=== PATIENT | male | born 1950 | race Caucasian/White ===

== ENCOUNTER → 2020-02-17 | Outpatient (CLI) | payer MEDICARE ==
[2020-02-17 09:02] VITALS: BP 168/99; PULSE 79; RESP 18; TEMP 98
--- NOTE | 2020-02-17 09:49 | P.PAINCN ---
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, he doesn't remember that any significant event that caused the pain, he denies any change in the bowel movement or urination, he denies any fever or night sweats, he tried epidural steroid injections and right sacroiliac joint steroid injection with minimal benefit, he tried physical therapy without any significant improvement in his pain, the pain is constant and increases with any activity and only localized in the low back area on the right side, with radiation to the right buttock, he continued to use Flexeril 10 mg 3 times a day and Mobic 15 mg daily and Percocet 7.5/325 twice a day, is getting prescription refills from his primary care he denies any side effect of the medication Past Medical History Past Medical History: Diabetes Mellitus, GERD/Reflux, Hypertension, Sleep Apnea/CPAP/BIPAP Additional Past Medical History / Comment(s): arthiritis; heart murmur History of Any Multi-Drug Resistant Organisms: None Reported Past Surgical History: Back Surgery, Heart Catheterization, Orthopedic Surgery Additional Past Surgical History / Comment(s): hernia surgeries; achilies repair Past Anesthesia/Blood Transfusion Reactions: No Reported Reaction Past Psychological History: Anxiety Smoking Status: Never smoker Past Alcohol Use History: None Reported Past Drug Use History: None Reported Medications and Allergies Home Medications Medication Instructions Recorded Confirmed Type Cyclobenzaprine [Flexeril] 10 mg PO TID PRN 02/17/20 02/17/20 History Dulaglutide [Trulicity] 1.5 mg SQ WEEKLY 02/17/20 02/17/20 History Empagliflozin [Jardiance] 25 mg PO DAILY 02/17/20 02/17/20 History FLUoxetine HCL [PROzac] 20 mg PO DAILY 02/17/20 02/17/20 History Meloxicam 15 mg PO DAILY 02/17/20 02/17/20 History Metoprolol Succinate (ER) [Toprol 200 mg PO DAILY 02/17/20 02/17/20 History Xl] Omeprazole 20 mg PO BID 02/17/20 02/17/20 History hydroCHLOROthiazide [Hydrodiuril] 50 mg PO DAILY 02/17/20 02/17/20 History metFORMIN HCL ER [Glucophage Xr] 500 mg PO BID 02/17/20 02/17/20 History oxyCODONE-APAP 7.5-325MG [Percocet 1 tab PO TID 02/17/20 02/17/20 History 7.5-325 mg] Allergies Allergy/AdvReac Type Severity Reaction Status Date / Time naproxen [From Naprosyn] AdvReac blood in Verified 02/17/20 08:29 stool Physical Exam Vitals: Vital Signs Temp Pulse Resp BP Pulse Ox 02/17/20 08:25 98.0 F 79 18 168/99 96 Physical Examinations : -Constitutiona : Cooperative , not in acute distress . -HEENT : nech : supple , no Lymphadenopathy , normal thyroid size . : eyes : no ptosis , no icterus, no photophobia . - neurologic : Cranial nerve II to XII intact , no focal neurological deffecit . -psychatric : alert , oriented X 3 , appropriate affect , intact judgment and insight . -Lymphatic : no Lymphadenopathy . - musculoskeltal : Lumber spine moter stegnth lower extremities ,thigh and legs 5/5 Right side , 5/5 Left side deep tendon reflexes : normal Knee Jerk , normal ankle Jerk lumber facet Loading Test =positive Right , negative Left Range of motion of the lumbar spine Flexion 60 degrees , extension 30 degrees strait leg raising test = positive at 60 degree on the right side and negative on the left side Fabere test= positive Right , and negative LT . Sever tenderness over the Sacroiliac joint on the Right , and negative on Left sides Gaenslen test= positive right ,and negative left . Seated flexion test= positive right ,and negative Left . Results Comments: MRI of the lumbar spine multilevel lumbar bulging disc disease at L2-3 and L3 4 L4 5 and L5-S1 and multilevel lumbar facet arthropathy Assessment and Plan Plan: Assessment and plan=1-lumbar spondylosis with lumbar facet arthropathy without myelopathy. 2-lumbar degenerative disc disease. 3-right sacroiliitis. Patient had lumbar epidural steroid injection and right sacroiliac joint steroid injection done at different institutions without any benefit He could benefit from a right side diagnostic medial branch block at L2, L3, L4, L5 To target the facet joint at L3 4 , L4 5, L5-S1 (right) Procedure risk and benefits and alternatives discussed with the patient and he wanted to think about it Patient will call our clinic to schedule the procedure if he decides to proceed Time with Patient: Greater than 30 PQRS Measure Charge Sheet Measure #130: Documentation of Current Meds in Medical Chart: Patient's medications documented in chart Measure #226: Tobacco Use: Screen & Cessation Intervention: Pt not a tobacco user Measure #111: Pneumonia Vaccination: Pneumococcal vaccine NOT administered or previously given Measure #47: Advance Care Plan: Advance care planning discussed & documented, pt chose/unable to give Measure #412: Opioid Treatment Agreement: No documentation of signed opioid treatment agreement Measure #408: Opioid Therapy Follow-up Evaluation: Patient had NO f/u eval minimum every 3 months during opioid therapy Measure #317: Preventitive Care & Scrn High Bld Press & F/U: Pre-hypertensive or hypertensive BP documented, pt will f/u with PCP Measure #128: Body Mass Index (BMI) Screening & Follow-up: BMI documented ABOVE normal parameters - f/u documented Measure #131: Pain Assessment & Follow-up: Pain positive & plan documented, Follow-up scheduled Measure #431: Unhealthy Alcohol Use Preventative Care & Scrn: Patient not identified as an unhealthy alcohol user PQRS Narrative: Blood Pressure 168/99 Scale Used Numeric (1 - 10) Hx Alcohol Use (MH) No Home Medications: Ambulatory Orders Cyclobenzaprine [Flexeril] 10 mg PO TID PRN 02/17/20 Dulaglutide [Trulicity] 1.5 mg SQ WEEKLY 02/17/20 Empagliflozin [Jardiance] 25 mg PO DAILY 02/17/20 FLUoxetine HCL [PROzac] 20 mg PO DAILY 02/17/20 Meloxicam 15 mg PO DAILY 02/17/20 Metoprolol Succinate (ER) [Toprol Xl] 200 mg PO DAILY 02/17/20 Omeprazole 20 mg PO BID 02/17/20 hydroCHLOROthiazide [Hydrodiuril] 50 mg PO DAILY 02/17/20 metFORMIN HCL ER [Glucophage Xr] 500 mg PO BID 02/17/20 oxyCODONE-APAP 7.5-325MG [Percocet 7.5-325 mg] 1 tab PO TID 02/17/20
== END | disposition home or self-care (01) ==
LOC: PNWHC3 08:18
PROVIDERS: ATTEND Specialist
DX: M47.816 Spondylosis without myelopathy or radiculopathy, lumbar region (principal); M51.36 Other intervertebral disc degeneration, lumbar region; M46.1 Sacroiliitis, not elsewhere classified; Z79.891 Long term (current) use of opiate analgesic; Z79.899 Other long term (current) drug therapy; Z79.84 Long term (current) use of oral hypoglycemic drugs
CPT/HCPCS: 99201

== ENCOUNTER → 2020-07-27 | Outpatient (CLI) | payer MEDICARE, OTHER ==
--- NOTE | 2020-07-27 09:42 | US ---
EXAMINATION TYPE: US kidneys/renal and bladder DATE OF EXAM: 07/27/2020 COMPARISON: NONE CLINICAL HISTORY: 69-year-old male N18.32 chronic kidney disease stage 3b. TECHNIQUE: Multiple sonographic images of the kidneys and bladder are obtained. FINDINGS: EXAM MEASUREMENTS: Right Kidney: 10.3 x 4.8 x 4.9 cm Left Kidney: 10.9 x 4.3 x 5.7 cm Right Kidney: No hydronephrosis. Left Kidney: No hydronephrosis. Bladder: No gross abnormality Incidental echogenic appearance to the liver. IMPRESSION: 1. No hydronephrosis. 2. Incidental echogenic appearance to the liver. Correlate for underlying hepatic steatosis.
== END | disposition home or self-care (01) ==
LOC: RADUSWWP 08:52
PROVIDERS: ATTEND Family Medicine
DX: N18.32 Chronic kidney disease, stage 3b (principal)
CPT/HCPCS: 76770

== ENCOUNTER → 2022-07-18 | Outpatient (CLI) | payer MEDICARE, OTHER ==
--- NOTE | 2022-07-18 12:08 | XR ---
EXAMINATION TYPE: XR chest 2V DATE OF EXAM: 07/18/2022 COMPARISON: NONE TECHNIQUE: PA and lateral views submitted. HISTORY: Cough FINDINGS: The lungs are clear and there is no pneumothorax, pleural effusion, or focal pneumonia. Heart size normal and no overt failure. Osseous structures demonstrate hypertrophic and degenerative changes of the spine. Hyperinflation suggests COPD. IMPRESSION: 1. No acute process.
== END | disposition home or self-care (01) ==
LOC: RADXRYALE 11:45
PROVIDERS: ATTEND Physician Assistant Medical
DX: R05.9 Cough, unspecified (principal); R06.2 Wheezing
CPT/HCPCS: 71046

== ENCOUNTER → 2022-07-25 | Outpatient (CLI) | payer MEDICARE, OTHER ==
--- NOTE | 2022-07-25 17:29 | CT ---
EXAMINATION TYPE: CT chest w con CT DLP: 566.70 mGycm, Automated exposure control for dose reduction was used. DATE OF EXAM: 07/25/2022 4:54 PM COMPARISON: Chest radiograph 07/18/2022 CLINICAL INDICATION:Male, 71 years old with history of R06.02 R05.3 Z77.111 J44.9; PHH, cough and jacquie g nodule. TECHNIQUE: Multiple axial images were obtained through the chest following the administration of 70 c c of Isovue 300. FINDINGS: LUNGS/ PLEURA: Dependent bibasilar persistent atelectasis. No pleural effusion, pneumothorax, or foca l consolidation. Calcified punctate granuloma within the right lung base. AIRWAY: Patent and unremarkable.. HEART: Size within normal limits. No pericardial effusion. MEDIASTINUM: No gross evidence of adenopathy. 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 VASCULATURE: No aortic aneurysm. MUSCULOSKELETAL: No acute osseous abnormalities . Multilevel degenerative changes of the visualized s pine. SOFT TISSUES/LYMPH NODES: Unremarkable. LOWER NECK: No significant findings. UPPER ABDOMEN: Small hiatal hernia. IMPRESSION: No acute thoracic process or clinically significant pulmonary nodules.
== END | disposition home or self-care (01) ==
LOC: RADCTMAIN 15:31
PROVIDERS: ATTEND Family Medicine
DX: J44.9 Chronic obstructive pulmonary disease, unspecified (principal); Z77.111 Contact with and (suspected) exposure to water pollution
CPT/HCPCS: 82565; 84520; 71260; 36415; Q9967

== ENCOUNTER → 2023-02-01 | Outpatient (CLI) | payer MEDICARE, OTHER ==
--- NOTE | 2023-02-02 16:22 | MR ---
EXAMINATION TYPE: MR lumbar spine wo con DATE OF EXAM: 02/01/2023 COMPARISON: None HISTORY: Lower back pain, radiates into buttocks. CONTRAST: 0 mL intravenous Gadavist. TECHNIQUE: Multiplanar, multisequence images of the lumbar spine were acquired. FINDINGS: Cord terminates at the L1 level. L5-S1: There is narrowing of disc height at this level. Minimal residual disc bulge is present with a nterior thecal sac contact. Facet hypertrophy is present with mild right posterior lateral thecal sac compression. No AP spinal canal stenosis is present. Neural foramen are patent. L4-L5: Broad-based disc bulge is moderate anterior thecal sac compression. Facet hypertrophy of ligam entum flavum laxity has significant lateral canal narrowing. This is also contributing to spinal zakia l stenosis this level. Mild right and moderate left foraminal narrowing is present. L3-L4: Broad-based disc bulge is present greater to the left paracentral region. This has moderate an terior thecal sac compression. Facet hypertrophy and significant ligamentum flavum laxity is present contributing to severe spinal canal stenosis, more so on the left. Moderate to severe left foraminal stenosis is present. L2-L3: There is a grade 1 retrolisthesis. Disc uncovering has mild anterior thecal sac compression. A P spinal canal stenosis is not present. Mild facet hypertrophy is present. Moderate to severe right a nd moderate left foraminal narrowing is present. L1-L2: Mild disc bulge is anterior thecal sac contact. No spinal canal stenosis is present. Neural fo ramen are patent. T12-L1: No significant disc bulge or disc herniation. No spinal canal stenosis. No foraminal stenos is. IMPRESSION: 1. Spinal canal stenosis secondary to ligamentum flavum laxity and mild disc bulging at L4-5. 2. Severe spinal canal stenosis secondary to disc bulging L3-4 greater into the left paracentral la nena on. Significant ligamentum flavum laxity has posterior lateral thecal sac compression on the left. 3. Grade 1 retrolisthesis of L2 posterior and L3. AP spinal canal stenosis is not evident
== END | disposition home or self-care (01) ==
LOC: RADMRIMAIN 10:49
PROVIDERS: ATTEND Family Medicine
DX: M51.16 Intervertebral disc disorders with radiculopathy, lumbar region (principal); M48.061 Spinal stenosis, lumbar region without neurogenic claudication; M43.16 Spondylolisthesis, lumbar region; R53.1 Weakness
CPT/HCPCS: 72148

== ENCOUNTER → 2023-03-13 | Outpatient (CLI) | payer MEDICARE, OTHER ==
[2023-03-13 11:38] VITALS: BP 138/88; PULSE 77; RESP 15; TEMP 98.6
--- NOTE | 2023-03-13 12:49 | P.PAINPG ---
PQRS Measure Charge Sheet Comment: HISTORY OF PRESENT ILLNESS: A 72 yr old male w at side as a referral from Dr Vital presents today w severe and chronic LBP x 3 yrs secondary to spinal stenosis, DDD, spondylosis and facet arthropathy without myelopathy for evaluation. Pt states pain level is provoked at 8 /10 in intensity, constant, localized in the lower lumbar spine, predominantly axial, achy in character w occasional shooting pain towards the L & R of midline. Pain is provoked by walking/ standing for periods of 15 min or more. Pain is alleviated by chiropractic treatments semi weekly x 5 wks which ended in Jan 2023, medications ([place] 10/325mg, Mobic, Baclfen), PT 5 yrs ago, heat, ice, repositioning and rest. Oswestry axial pain score at 28. PMH: OA, DM II, GERD, HTN, RADHA, Anxiety PSH: Cardiac Cath, Hernia Repair, Achilles Repair, Orthopedic Surgery SH: Negative x3 FH: Non contributory All: See list Meds: See list REVIEW OF ORGAN SYSTEMS: CONSTITUTIONAL: No fevers or chills. No recent weight loss. NEUROLOGICAL: + numbness and tingling along the distal extremities. No seizure disorders or headaches. MUSCULOSKELETAL: + pain PSYCHIATRIC: Denies current depression or suicidal thoughts. Physical Examinations : Constitutional : Cooperative , not in acute distress . Neurologic : Cranial nerve II to XII intact. No focal neurological deficits. Psychiatric : alert & oriented x 3. Matching mood & appropriate affect. Judgment & insight intact. Musculoskeletal : Cervical Spine Motor strength in the deltoid and biceps: Normal right side. Normal Left side Motor strength biceps and the wrist extensors: Normal right side . Normal left side Motor strength in the triceps muscle: Normal right side. Normal left side Deep tendon reflexes: Normal at the biceps. Normal at Brachioradialis. Normal at triceps Vertebral body tenderness to deep palpation over Cervical facet loading test: positive bilaterally Spurling test: positive bilaterally Neck distraction test: positive bilaterally Gio sign: positive bilaterally Lumbar spine Motor strength lower extremities ,thigh and legs 5/5 Right side , 5/5 Left side Deep tendon reflexes : Normal Knee Jerk. Normal Ankle Jerk Vertebral body tenderness over Atkins Test positive Lumbar facet Loading Test: positive Right / positive Left over L4-L5, L5-S1 Range of motion of the lumbar spine Flexion 30 degrees, extension 10 degrees Straight Leg Raise test: Left/ Right positive at degree Jose Daniel test: positive right / positive left. Severe tenderness over the Sacroiliac joint on the Right / Left sides Gaenslen test: positive bilaterally Seated flexion test: positive bilaterally. Sacral spine : Severe tenderness over the Sacroiliac joint: right side / left side Range of motion: Flexion of the lumbar spine <60 degrees Range of motion: Extension of the lumbar spine <20 degrees Gaenslen's Test positive Jose Daniel test: positive right side / left side Thigh Thrust Test Sacral Thrust Test Imaging: MRI noncontrast of the lumbar spine from 02/01/23 reviewed Assessment/ Plan : Lumbar spinal stenosis, lumbar DDD Recommendation of BL MBB L4-L5, L5-S1 #1. May need a series of injections, up until RFA, for optimal pain relief. Risks, benefits of procedure discussed and patient verbalized understanding. Admits to anti- coagulant use or medical history of diabetes. Protocol for discontinuation/ continuation of medications thierry procedure discussed. Minimal anesthesia provided, if clinically indicated, consisting of Versed and Fentanyl. All questions answered. I have spent greater than 30 minutes on patient care today. Dr Parsons was available by phone for the evaluation of this patient. The time was used to review the medical records including relevant urine studies and Prescription history (MAPs), review of the available imaging, evaluation and examination of the patient, coordination of care with the medical staff and if applicable referring physicians, as well as creation of the medical record PQRS Narrative: Hx Alcohol Use (MH) No Home Medications: Ambulatory Orders Cyclobenzaprine [Flexeril] 10 mg PO TID PRN 02/17/20 Dulaglutide [Trulicity] 1.5 mg SQ WEEKLY 02/17/20 Empagliflozin [Jardiance] 25 mg PO DAILY 02/17/20 FLUoxetine HCL [PROzac] 20 mg PO DAILY 02/17/20 Meloxicam 15 mg PO DAILY 02/17/20 Metoprolol Succinate (ER) [Toprol Xl] 200 mg PO DAILY 02/17/20 Omeprazole 20 mg PO BID 02/17/20 hydroCHLOROthiazide [Hydrodiuril] 50 mg PO DAILY 02/17/20 metFORMIN HCL ER [Glucophage Xr] 500 mg PO BID 02/17/20 oxyCODONE-APAP 7.5-325MG [Percocet 7.5-325 mg] 1 tab PO TID 02/17/20 Controlled Substance Measures - Controlled Substance Measures Is patient prescribed a controlled substance at discharge?: No
== END ==
LOC: PNWHC3 10:18
PROVIDERS: ATTEND Specialist
DX: M46.1 Sacroiliitis, not elsewhere classified (principal); M47.817 Spondylosis without myelopathy or radiculopathy, lumbosacral region; M51.37 Other intervertebral disc degeneration, lumbosacral region; M48.07 Spinal stenosis, lumbosacral region; Z88.6 Allergy status to analgesic agent
CPT/HCPCS: 99211

== ENCOUNTER → 2023-03-27 | Outpatient (CLI) | payer MEDICARE, OTHER ==
--- NOTE | 2023-03-27 12:52 | P.SLEEP ---
History of Present Illness DATE: 03/27/2023 CONSULTATION/NEW PATIENT EVALUATION HISTORY OF PRESENT ILLNESS/SLEEP-WAKE EVALUATION: 72-year-old gentleman had been evaluated in the sleep center for obstructive sleep apnea hypopnea syndrome. Patient has history of obstructive sleep apnea for 15 years. He continued to use his she lost CPAP equipment unit every night for the whole night. I checked CPAP unit. Motor live expectancy exceeded. Usage is 100%, 10.2 hours per night. Patient significantly increased weight since sleep study which was done in another institution 15 years ago. SLEEP SCHEDULE: Usually sleep schedule from 11 PM to 7 AM. FALLING ASLEEP: Patient does have problems with falling asleep. DURING SLEEP: Usually no significant snoring or episodes of stop breathing during the sleep while patient using CPAP. Patient continued to have multiple awakenings from CPAP up to 4 times with 4 episodes of nocturia. No history of hypnogogical hallucinations, sleep paralysis, or cataplexy. DURING THE DAY/WAKE STATE: In the morning patient wake up tired, has problems with memory, concentration, irritability.. [place] sleepiness scale is 5. Patient takes 2 naps at afternoon time. PAST MEDICAL HISTORY: Hypertension, diabetes mellitus, BPH, hyperlipidemia, arthritis, sinuses problems, acid reflux,. PAST SURGICAL HISTORY: Left ankle surgery, vasectomy. MEDICATIONS: Insulin, meloxicam 7.5 mg once a day, Flomax 0.4 mg once a day, omeprazole 20 mg once a day, Jardiance, loratidine 10 mg once a day, hydrochlorothiazide 50 mg once a day, metoprolol 100 mg once a day, hydrocodone 36492 milligrams once a day, baby aspirin. SOCIAL HISTORY: Negative for smoking or using alcohol. FAMILY HISTORY: Coronary artery disease. REVIEW OF SYSTEMS: Snoring, multiple awakenings from sleep, sleepiness during the day. No fevers. No double vision. No recent chest pain. No shortness of breath. No abdominal pain. No bleeding episodes. No blood in urine. No seizure episodes. PHYSICAL EXAMINATION: GENERAL: A pleasant patient without any distress. VITAL SIGNS: BP 125/70 , HR 48 , RR 12 , weight 271.2 pounds, height 6 fo ot 1.5 inches, body mass index 35.2 . HEENT: PERRLA, EOMI. Evaluation of oropharynx showed tongue protrudes midline, low position of soft palate Mallampati 4 NECK: Supple. No JVD. Thyroid is not palpable. [19-3/4inches in circumference. LUNGS: Clear to percussion and to auscultation. Good air exchange. No wheezing or rhonchi. HEART: S1, S2 regular. No murmurs, gallops or rubs. ABDOMEN: Soft and nontender. Bowel sounds are present. No organomegaly appreciated. EXTREMITIES: No clubbing or cyanosis. GUMMED TAPE PRESS OPERATOR: Awake, alert, and oriented x3. Cranial nerves 2 to 7 intact. There is no fasciculation or atrophy noted. No focal deficits observed. ASSESSMENT: 1. Obstructive sleep apnea hypopnea syndrome for more than 15 years. Patient continued to use CPAP equipment, but has multiple awakenings from sleep and sleepiness during the day. Extremely low position of soft palate Mallampati 4, extremely wide neck 19 and three-quarter inches in circumference. Obstructive sleep apnea-hypopnea syndrome. 2. Obesity BMI 35.2 3. Hypertension 4. Diabetes mellitus 5 BPH 6 . hyperlipidemia 7. Acid reflux 8. Arthritis 9 . status post left ankle surgery 10. status post was ectomy PLAN: 1. CPAP/BiPAP titration for respiratory abnormalities during sleep. 2. Patient will get new Pap equipment after titration 3. Preferable position during sleep on the side. 4. No driving if patient feels any sleepiness. Patient is aware of civil and criminal liability for unsafe driving. 5. Sleep hygiene with regular sleep time for at least 7.5-8 hours. 6. Watching and losing weight. Thank you very much for referring this patient for consultation. Sincerely, Segun Saunders MD, PhD, FAASM. Diplomat of [place] [employer], Sleep Medicine Board by [place] [employer] [place] [employer] Manager of [facility] [place] Past Medical History Past Medical History: Diabetes Mellitus, GERD/Reflux, Hypertension, Osteoarthritis (OA), Sleep Apnea/CPAP/BIPAP Additional Past Medical History / Comment(s): arthritis, heart murmur History of Any Multi-Drug Resistant Organisms: None Reported Past Surgical History: Back Surgery, Heart Catheterization, Orthopedic Surgery Additional Past Surgical History / Comment(s): hernia surgeries; achilies repair, pain procedures Past Anesthesia/Blood Transfusion Reactions: No Reported Reaction Smoking Status: Never smoker Medications and Allergies Home Medications Medication Instructions Recorded Confirmed Type Empagliflozin [Jardiance] 25 mg PO DAILY 02/17/20 03/24/23 History FLUoxetine HCL [PROzac] 20 mg PO DAILY 02/17/20 03/24/23 History Meloxicam 7.5 mg PO DAILY 02/17/20 03/24/23 History Metoprolol Succinate (ER) [Toprol 200 mg PO DAILY 02/17/20 03/24/23 History Xl] Omeprazole 20 mg PO DAILY 02/17/20 03/24/23 History hydroCHLOROthiazide [Hydrodiuril] 50 mg PO DAILY 02/17/20 03/24/23 History Aspirin 81 mg PO DAILY 03/24/23 03/24/23 History Baclofen [Lioresal] 10 mg PO TID 03/24/23 03/24/23 History [place]wellia 1 tab PO DAILY 03/24/23 History Cholecalciferol [Vitamin D3 (25 25 mcg PO DAILY 03/24/23 03/24/23 History Mcg = 1000 Iu)] Diclofenac Sodium Gel [Voltaren 1% 2 gm TOPICAL QID 03/24/23 03/24/23 History Gel] Glucosa Reddy 2Kcl/Chondroitin Reddy 1 each PO DAILY 03/24/23 03/24/23 History [Glucosamine-Chondroitin Cap] HYDROcodone/APAP 10-325MG [[place] 1 tab PO TID 03/24/23 03/24/23 History 10-325] INSULIN ASPART (NovoLOG) [NovoLOG 6 unit SQ AC-TID 03/24/23 03/24/23 History (formulary)] Insulin Glargine,Hum.rec.anlog 60 units SQ HS 03/24/23 03/24/23 History [Toujeo Solostar] Loratadine [Claritin] 10 mg PO DAILY 03/24/23 03/24/23 History Milk Thistle 150 mg PO DAILY 03/24/23 03/24/23 History Multivitamins, Thera [Multivitamin 1 tab PO DAILY 03/24/23 03/24/23 History (formulary)] Simvastatin [Zocor] 40 mg PO HS 03/24/23 03/24/23 History Tamsulosin HCl [Flomax] 0.4 mg PO HS 03/24/23 03/24/23 History Tirzepatide [Mounjaro] 5 mg SQ SA 03/24/23 03/24/23 History Ubidecarenone [Co Q-10] 100 mg PO DAILY 03/24/23 03/24/23 History Vitamin E (Dl,Tocopheryl Acet) 400 unit PO DAILY 03/24/23 03/24/23 History [Vitamin E (400 Iu = 180 mg)] Allergies Allergy/AdvReac Type Severity Reaction Status Date / Time naproxen [From Naprosyn] AdvReac blood in Verified 03/24/23 16:02 stool Sleep Note - Sleep Note Sleep Note: Temperature: Pulse Rate: Respiratory Rate: Blood Pressure: SpO2: Height: Weight: BMI: Neck Circumference:
== END ==
LOC: 3 N SLEEP 10:59
PROVIDERS: ATTEND Internal Medicine
DX: G47.33 Obstructive sleep apnea (adult) (pediatric) (principal); E66.9 Obesity, unspecified; I10 Essential (primary) hypertension; E11.9 Type 2 diabetes mellitus without complications; N40.0 Benign prostatic hyperplasia without lower urinary tract symptoms; E78.5 Hyperlipidemia, unspecified; K21.9 Gastro-esophageal reflux disease without esophagitis; M19.90 Unspecified osteoarthritis, unspecified site; Z98.890 Other specified postprocedural states; Z68.35 Body mass index [BMI] 35.0-35.9, adult; Z99.89 Dependence on other enabling machines and devices; Z88.8 Allergy status to other drugs, medicaments and biological substances; Z79.4 Long term (current) use of insulin; Z79.85 Long-term (current) use of injectable non-insulin antidiabetic drugs; Z79.899 Other long term (current) drug therapy; Z79.82 Long term (current) use of aspirin; Z79.84 Long term (current) use of oral hypoglycemic drugs
CPT/HCPCS: 99211

== ENCOUNTER 2023-03-28 11:45 | Day surgery (SDC) | payer MEDICARE, OTHER ==
[~2023-03-28 11:45] MED LIST: LACTATED RINGERS 1,000 ML IV SCH
[2023-03-28 12:50] VITALS: RESP 16; TEMP 97.7
[2023-03-28 12:57] LABS: Glucose,Whole Blood 138 mg/dL (70-110)
[2023-03-28] MEDS ORDERED: ROPIVACAINE 5MG/ML 20ML VIAL ONE (14:14)
[2023-03-28] MEDS ORDERED: MIDAZOLAM 2 MG/2 ML VIAL ONE (14:14)
[2023-03-28] MEDS ORDERED: IV FLUID CONTINUATION 1,000 ML IV ONE (14:39)
--- NOTE | 2023-03-28 14:39 | P.PCN ---
Description of Procedure: Preprocedure diagnosis. 1. 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 2. Lumbar degenerative disc disease. Postprocedure diagnosis. As above. Procedure done. Bilateral diagnostic block with local anesthetics at L3, L4, L5 medial branch with fluoroscopic guidance (fluoroscopy images are available in the radiology department) target to the facet joint bilateral L4 5 and L5-S1 levels. Anesthesia. moderate sedation with intravenous Versed 2 mg and fentanyl and local infiltration with local anesthetics. Blood loss. Minimal. Indication. The patient has low back pain secondary to lumbar facet joint arthropathy. Discussed the procedure and alternative and complications which includes infection, bleeding, nerve damage, aggravation of pain. Patient understands and all questions were answered. Patient iunderstands that if any pain relief occurs it will last for a few hours to a few days maximum. Procedure description. After getting consent patient was taken in the OR in prone position. Back prepped with chlorhexidine and draped in sterile fashion. After injecting 5 mL of plain 1% lidocaine subcutaneously, a 22-gauge spinal needle was introduced under tunnel vision of the fluoroscope at the junction of the superior articular process with right ala of the sacrum. With slight right oblique fluoroscope, after injecting 5 mL of plain 1% lidocaine subcutaneously, a 22-gauge spinal needle was introduced under tunnel vision of the fluoroscope at the junction of the superior articular process with right L5 transverse process, junction of the superior articular process with the right L4 transverse process. After needle position confirmation by AP and crosstable lateral view, after negative aspiration, half milliliters of 0.5% ropivacaine were injected at each point. In exactly same way, left sided injections were done at the following 3 points. Junction of the superior articular process with left ala of the sacrum, junction of the superior articular process with the left L5 transverse process, junction of the superior articular process with left L4 transverse process. Total 3 mL of 0.5% ropivacaine was injected. Spinal needles were taken out and bandages were applied. Disposition. Patient tolerated the procedure well. No complication. Discharged home in stable condition.
[2023-03-28 15:19] VITALS: BP 111/66; PULSE 67
--- NOTE | 2023-03-28 15:54 | FL ---
EXAMINATION TYPE: FL guided pain mgmt statistic DATE OF EXAM: 03/28/2023 HISTORY: Fluoroscopy time Total dose area product (DAP) in uGy*m?, mGy*cm? (or similar): 0.48020 IMPRESSION: 1. Fluoroscopy time.
== END 2023-03-28 15:14 | disposition home or self-care (01) ==
LOC: ORPAIN 11:45
PROVIDERS: ATTEND Pain Medicine Interventional Pain Medicine
DX: M51.36 Other intervertebral disc degeneration, lumbar region (principal); M47.816 Spondylosis without myelopathy or radiculopathy, lumbar region; E11.9 Type 2 diabetes mellitus without complications; Z88.6 Allergy status to analgesic agent; Z79.899 Other long term (current) drug therapy
CPT/HCPCS: 64493; 64494 ×2; J2250; J2795

== ENCOUNTER → 2023-04-27 | Outpatient (CLI) | payer MEDICARE, OTHER ==
[2023-04-27 10:59] VITALS: BP 156/92; PULSE 78; RESP 16; TEMP 98.3
--- NOTE | 2023-04-27 14:19 | P.PAINPG ---
PQRS Measure Charge Sheet Comment: HISTORY OF PRESENT ILLNESS: A 72 yr old male w at side presents today w severe and chronic LBP x 3 yrs secondary to spinal stenosis, DDD, spondylosis and facet arthropathy without myelopathy for evaluation s/p BL MBB L3-L5 #1. Pt states he experienced 50% pain relief s/p procedure. Pt states pain level is provoked at 4 /10 in intensity, constant, localized in the lower lumbar spine, predominantly axial, achy in character w occasional shooting pain towards the L & R of midline. Pain is provoked by walking/ standing for periods of 15 min or more. Pain is alleviated by chiropractic treatments semi weekly x 5 wks which ended in Jan 2023, medications, PT 5 yrs ago, heat, ice, repositioning and rest. Oswestry axial pain score at 28. Interventional procedures include BL MBB L3-L5 x1 Medications include Jackson 10/325mg, Baclofen, Mobic REVIEW OF ORGAN SYSTEMS: CONSTITUTIONAL: No fevers or chills. No recent weight loss. NEUROLOGICAL: + numbness and tingling along the distal extremities. No seizure disorders or headaches. MUSCULOSKELETAL: + pain PSYCHIATRIC: Denies current depression or suicidal thoughts. Physical Examinations : Constitutional : Cooperative , not in acute distress . Neurologic : Cranial nerve II to XII intact. No focal neurological deficits. Psychiatric : alert & oriented x 3. Matching mood & appropriate affect. Judgment & insight intact. Musculoskeletal : Cervical Spine Motor strength in the deltoid and biceps: Normal right side. Normal Left side Motor strength biceps and the wrist extensors: Normal right side . Normal left side Motor strength in the triceps muscle: Normal right side. Normal left side Deep tendon reflexes: Normal at the biceps. Normal at Brachioradialis. Normal at triceps Vertebral body tenderness to deep palpation over Cervical facet loading test: positive bilaterally Spurling test: positive bilaterally Neck distraction test: positive bilaterally Gio sign: positive bilaterally Lumbar spine Motor strength lower extremities ,thigh and legs 5/5 Right side , 5/5 Left side Deep tendon reflexes : Normal Knee Jerk. Normal Ankle Jerk Vertebral body tenderness over Atkins Test positive Lumbar facet Loading Test: positive Right / positive Left over L4-L5, L5-S1 Range of motion of the lumbar spine Flexion 30 degrees, extension 10 degrees Straight Leg Raise test: Left/ Right positive at degree Jose Daniel test: positive right / positive left. Severe tenderness over the Sacroiliac joint on the Right / Left sides Gaenslen test: positive bilaterally Seated flexion test: positive bilaterally. Sacral spine : Severe tenderness over the Sacroiliac joint: right side / left side Range of motion: Flexion of the lumbar spine <60 degrees Range of motion: Extension of the lumbar spine <20 degrees Gaenslen's Test positive Jose Daniel test: positive right side / left side Thigh Thrust Test Sacral Thrust Test Imaging: MRI noncontrast of the lumbar spine from 02/01/23 reviewed Assessment/ Plan : Lumbar spinal stenosis, lumbar DDD Recommendation of PT x 6 wks M51.36. Follow up w orthopedic surgery to explore additional treatment options. All questions answered. I have spent greater than 30 minutes on patient care today. Dr Parsons was available by phone for the evaluation of this patient. The time was used to review the medical records including relevant urine studies and Prescription history (MAPs), review of the available imaging, evaluation and examination of the patient, coordination of care with the medical staff and if applicable referring physicians, as well as creation of the medical record PQRS Narrative: Hx Alcohol Use (MH) No Home Medications: Ambulatory Orders Empagliflozin [Jardiance] 25 mg PO DAILY 02/17/20 FLUoxetine HCL [PROzac] 20 mg PO DAILY 02/17/20 Meloxicam 7.5 mg PO DAILY 02/17/20 Metoprolol Succinate (ER) [Toprol Xl] 200 mg PO DAILY 02/17/20 Omeprazole 20 mg PO DAILY 02/17/20 hydroCHLOROthiazide [Hydrodiuril] 50 mg PO DAILY 02/17/20 Aspirin 81 mg PO DAILY 03/24/23 Baclofen [Lioresal] 10 mg PO TID 03/24/23 Boswellia 1 tab PO DAILY 03/24/23 Cholecalciferol [Vitamin D3 (25 Mcg = 1000 Iu)] 25 mcg PO DAILY 03/24/23 Diclofenac Sodium Gel [Voltaren 1% Gel] 2 gm TOPICAL QID 03/24/23 Glucosa Reddy 2Kcl/Chondroitin Reddy [Glucosamine-Chondroitin Cap] 1 each PO DAILY 03/24/23 HYDROcodone/APAP 10-325MG [Jackson 10-325] 1 tab PO TID 03/24/23 INSULIN ASPART (NovoLOG) [NovoLOG (formulary)] 6 unit SQ AC-TID 03/24/23 Insulin Glargine,Hum.rec.anlog [Toujeo Solostar] 60 units SQ HS 03/24/23 Loratadine [Claritin] 10 mg PO DAILY 03/24/23 Milk Thistle 150 mg PO DAILY 03/24/23 Multivitamins, Thera [Multivitamin (formulary)] 1 tab PO DAILY 03/24/23 Simvastatin [Zocor] 40 mg PO HS 03/24/23 Tamsulosin HCl [Flomax] 0.4 mg PO HS 03/24/23 Tirzepatide [Mounjaro] 5 mg SQ SA 03/24/23 Ubidecarenone [Co Q-10] 100 mg PO DAILY 03/24/23 Vitamin E (Dl,Tocopheryl Acet) [Vitamin E (400 Iu = 180 mg)] 400 unit PO DAILY 03/24/23 Controlled Substance Measures - Controlled Substance Measures Is patient prescribed a controlled substance at discharge?: No
== END ==
LOC: PNWHC3 10:30
PROVIDERS: ATTEND Specialist
DX: M51.36 Other intervertebral disc degeneration, lumbar region (principal); M48.061 Spinal stenosis, lumbar region without neurogenic claudication; Z88.6 Allergy status to analgesic agent
CPT/HCPCS: 99211

== ENCOUNTER → 2024-06-12 | Outpatient (CLI) | payer MEDICARE, OTHER ==
--- NOTE | 2024-06-12 16:15 | NM ---
EXAMINATION TYPE: NM stress lexiscan cardiolite DATE OF EXAM: 06/12/2024 COMPARISON: NONE CLINICAL INDICATION: Male, 73 years old with history of R06.02 Shortness of breath, R42 Dizziness and giddiness; vertigo and hypertension. TECHNIQUE: After the intravenous administration of 9.7 mCi Tc 99m Sestamibi - Cardiolite resting SPE CT images acquired 45 minutes post injection. The patient received 0.4mg Lexiscan, 23.0 mCi Tc 99m Sestamibi - Stress images obtained [address] injection FINDINGS: Review of stress and rest SPECT images demonstrates large area of fixed perfusion defect involving es sentially the entire inferior wall. No distinct reversibility is identified. Gated analysis shows pos sible global hypokinesis with an estimated left ventricular ejection fraction of 41 %. TID it is jen sured normal at 0.91. IMPRESSION: 1. Large fixed perfusion defect involving the inferior wall. Correlate for history of any previous in farct. Alternatively, findings may be on the basis of prominent diaphragmatic attenuation artifact wh ich would limit the exam. Clinically correlate. Otherwise, no discrete reversibility is seen. 2. LVEF estimated low at 41%. [facility], , 06/12/2024 4:13 PM
--- NOTE | 2024-06-12 18:53 | CA ---
Transthoracic Echo Report Name: Parrish Dumont Age: 73 Gender: M : 1950 Exam Date: 06/12/2024 13:11 Exam Location: [facility] Ht (in): 74 Wt (lb): 215 Ordering Physician: Morteza Quezada DO Attending/Referring Phys: Jana Harkins PAC Tobacco Wrapping Machine Tender Melissa Canela RDCS Procedure CPT: Indications: R06.02 Shortness of breath R42 Dizziness and giddiness Cardiac Hx: Technical Quality: Fair Contrast 1: Total Dose (mL): Contrast 2: Total Dose (mL): MEASUREMENTS (Male / Female) Normal Values 2D ECHO LV Diastolic Diameter PLAX 5.1 cm 4.2 - 5.9 / 3.9 - 5.3 cm LV Systolic Diameter PLAX 4.1 cm IVS Diastolic Thickness 1.2 cm 0.6 - 1.0 / 0.6 - 0.9 cm LVPW Diastolic Thickness 1.2 cm 0.6 - 1.0 / 0.6 - 0.9 cm LV Relative Wall Thickness 0.5 RV Internal Dim ED PLAX 2.8 cm LVOT Diameter 2.1 cm LA Systolic Diameter LX 4.1 cm 3.0 - 4.0 / 2.7 - 3.8 cm LV Diastolic Volume MOD BP 131.3 cm??? 67 - 155 / 56 - 104 cm??? LV Systolic Volume MOD BP 71.7 cm??? 22 - 58 / 19 - 49 cm??? LV Ejection Fraction MOD BP 45.4 % >= 55 % LV Cardiac Index MOD BP 2125.1 cm???/min???m??? LV Diastolic Volume MOD 4C 110.1 cm??? LV Systolic Volume MOD 4C 65.5 cm??? LV Ejection Fraction MOD 4C 40.6 % LV Cardiac Index MOD 4C 1594.4 cm???/min???m??? LV Diastolic Length 4C 8.5 cm LV Systolic Length 4C 7.8 cm LV Diastolic Volume MOD 2C 138.8 cm??? LV Systolic Volume MOD 2C 80.6 cm??? LV Ejection Fraction MOD 2C 42.0 % LV Cardiac Index MOD 2C 2077.2 cm???/min???m??? LV Diastolic Length 2C 9.7 cm LV Systolic Length 2C 7.7 cm M-MODE Aortic Root Diameter MM 3.5 cm LA Systolic Diameter MM 3.0 cm LA Ao Ratio MM 0.9 AV Cusp Separation MM 1.3 cm DOPPLER AV Peak Velocity 225.0 cm/s AV Peak Gradient 20.2 mmHg AV Mean Velocity 148.9 cm/s AV Mean Gradient 10.3 mmHg AV Velocity Time Integral 49.5 cm AI Peak Velocity 313.6 cm/s AI Peak Gradient 39.3 mmHg AI Pressure Half Time 562.3 ms LVOT Peak Velocity 74.4 cm/s LVOT Peak Gradient 2.2 mmHg LVOT Velocity Time Integral 19.1 cm LVOT Stroke Volume 63.4 cm??? LVOT Stroke Volume Index 28.3 ml/m??? LVOT Cardiac Index 2260.4 cm???/min???m??? AV Area Cont Eq vti 1.3 cm??? AV Area Cont Eq pk 1.1 cm??? Mitral E Point Velocity 85.1 cm/s Mitral A Point Velocity 82.6 cm/s Mitral E to A Ratio 1.0 MV Deceleration Time 229.6 ms MV E' Velocity 6.0 cm/s Mitral E to MV E' Ratio 14.1 TR Peak Velocity 256.1 cm/s TR Peak Gradient 26.2 mmHg Right Ventricular Systolic Press 36.2 mmHg FINDINGS Left Ventricle Left ventricular ejection fraction is estimated at 40-45 %. Mildly increased left ventricular wall thickness. Left ventricular cavity size normal. Moderate global hypokinesis Right Ventricle Mild right ventricular dilatation. Mild pulmonary hypertension. Right Atrium Mild right atrial dilatation. Left Atrium Mild left atrial dilatation. Mitral Valve Structurally normal mitral valve. Mild mitral regurgitation. No mitral stenosis. Aortic Valve Aortic valve not well visualized. Mild aortic stenosis with a peak gradient of 20 mmHg and a mean gradient of 10mmHg. Mild aortic regurgitation. Tricuspid Valve Structurally normal tricuspid valve. Mild tricuspid regurgitation. No tricuspid stenosis. Pulmonic Valve Structurally normal pulmonic valve. Trace pulmonic regurgitation. No pulmonic stenosis. Pericardium Small pericardial effusion. Aorta Normal size aortic root and proximal ascending aorta. CONCLUSIONS 1. Moderate impairment of the left ventricular systolic function 2. Mild mitral and tricuspid regurgitation with mild pulm hypertension 3. Mild aortic stenosis and aortic regurgitation Previewed by: Dr. Filipe Hillman MD (Electronically Signed) Final Date: 12 June 2024 18:52
--- NOTE | 2024-06-12 19:09 | CA ---
Lexiscan Nuclear Stress Test Report Name: Parrish Dumont Exam Date: 06/12/2024 13:47 Exam Location: [facility] Ht (in): 74 Wt (lb): 215 BSA: 2.24 Ordering Phys: Morteza Quezada DO Referring Phys: Jana Harkins Technologist: MIRI Age: 73 Gender: M : 1950 Procedure CPT: Indications: R06.02 SHORTNESS OF BREATH R42 DIZZINESS AND GIDDI ICD-10 Codes: Patient History: Vertigo and hypertension Medications: Meds past 24 hrs: Pretest Chest Pain: STRESS TEST Lexiscan Protocol Exercise Duration (min:sec): 02:[address] Depressions (mm): Angina Score: Harper Score: Resting HR (bpm): 77 Peak HR (bpm): 102 Resting BP (mmHg): 127 / 86 Peak BP (mmHg): 144 / 97 MPHR: 148 Target HR: 126 % MPHR: 69 METS: 1.0 Total Dose: Peak Dose: Atropine: Double Product: 55594 BP Response: Stress Termination: Infusion complete Stress Symptoms: No chest pain or symptoms Stress Summary: ECG ANALYSIS Resting ECG: Sinus rhythm. Atrial premature contraction. Right bundle branch block. Nonspecific ST-T abnormality. Stress ECG: No ECG changes from baseline with Lexiscan infusion. CONCLUSIONS No ECG evidence of ischemia with Lexiscan infusion. Nuclear test results to follow. Dr. Filipe Hillman MD (Electronically Signed) Final Date: 12 June 2024 19:08
== END | disposition home or self-care (01) ==
LOC: RADNMMAIN 11:29
PROVIDERS: ATTEND Family Medicine
DX: R06.02 Shortness of breath (principal); R42 Dizziness and giddiness
CPT/HCPCS: 93017; 93306; 78452; A9500

== ENCOUNTER → 2024-06-12 | Outpatient (CLI) | payer MEDICARE, OTHER | END | disposition home or self-care (01) | LOC: RADECHMAIN 13:45 | PROVIDERS: ATTEND Family Medicine | DX: Z53.9 Procedure and treatment not carried out, unspecified reason (principal) ==

== ENCOUNTER → 2024-06-27 | Outpatient (CLI) | payer MEDICARE, OTHER ==
--- NOTE | 2024-07-10 12:32 | P.HOLTER ---
Holter monitor shows sinus mechanism, heart rates ranging from 64-107 beats a minute Paroxysms of A-fib with RVR up to 170 bpm Longest episode of atrial fibrillation was for about 22 minutes Frequent brief nonsustained SVT Very frequent nonsustained VT. Greater than 600 episodes, longest for 19 beats
== END | disposition home or self-care (01) ==
LOC: RADECHMAIN 07:53
PROVIDERS: ATTEND Family Medicine
DX: I48.0 Paroxysmal atrial fibrillation (principal); I47.10 Supraventricular tachycardia, unspecified
CPT/HCPCS: 93225

== ENCOUNTER → 2024-07-17 | Outpatient (CLI) | payer MEDICARE, OTHER ==
[2024-07-17 14:14] VITALS: BP 150/73; PULSE 63; RESP 16; TEMP 97.5
--- NOTE | 2024-07-17 15:07 | P.PROGSL ---
Subjective DATE: 07/17/2024 FOLLOW UP VISIT. Patient with obstructive sleep apnea hypopnea syndrome return to sleep center for follow-up visit. Information from previous visit have been reviewed. Patient is using PAP equipment every night for the whole night, getting PAP supplies in time. The patient does not have significant problems with the mask, PAP unit and humidification. Oxford sleepiness scale is 5, which is normal. I checked information from PAP unit. PAP unit pressure 13 cm H2O. Usage is 100% for more then 4 hours, average 8.75 hours per night. Leak is significantly increased to 72.0 l/m. Apnea Hypopnea Index is 1.0, which is normal. MEDICATIONS have been reviewed, please see below. During physical exam: GENERAL: A pleasant patient without any distress. VITAL SIGNS: Please see below, weight is 223.6 lbs, BMI 30.2. HEENT: PERRLA, EOMI.low position of soft palate, Mallapati 4 . NECK: Supple. No JVD. LUNGS: Clear to percussion and to auscultation. Good air exchange. No wheezing or rhonchi. HEART: S1, S2 regular. ABDOMEN: Soft and nontender.[] EXTREMITIES: No clubbing or cyanosis. MACHINE SHOP LEAD MAN: Awake, alert, and oriented x3. No focal deficit. Impressions: 1. Obstructive sleep apnea-hypopnea syndrome. Patient demonstrated great compliance with treatment, benefiting from treatment. 2. Hypertension. 3. Diabetes mellitus. 4. BPH. 5. Hyperlipidemia. 6. Acid reflux. 7. Arthritis. 8. Status post vasectomy. 9. Status post left ankle surgery. 10. Very mild obesity, borderline to overweight, BMI 30.2, patient lost 40 pounds comparing with previous visit. Plan: 1. Continue using PAP equipment every night for the whole night. Patient will try different style of nasal mask, possibly to try nasal pillow mask. 2. Sleep hygiene with regular time in bed for at least 7.5-8 hours 3. PAP unit should stay lower then position of the head. 4. Advised patient to remove all remaining water from humidifier canister daily and make it dry after each usage. Refill canister with fresh distilled water before each usage. 5. Watching weight. 6. Precautions related to driving. No driving if feel any sleepiness. 7. I will maintain prescription for PAP supplies including mask, tube, filters. 8. Follow up visit in 8 months or earlier if patient has any problems. Thank you very much for allowing me to participate in the management of your patient. Segun Saunders MD, PhD, FAASM. Diplomat of [place] [employer], Sleep Medicine Board by [place] [employer] Economic Adviser of [facility] [place] Objective - Vital Signs Vital Signs: Vital Signs Temp 97.5 F L 07/17/24 14:11 Pulse 63 07/17/24 14:11 Resp 16 07/17/24 14:11 BP 150/73 07/17/24 14:11 Pulse Ox 98 07/17/24 14:11 FiO2 Intake & Output 07/16/24 07/17/24 07/17/24 18:59 06:59 18:59 Weight 101.321 kg Home Medications: Home Medications Medication Instructions Recorded Confirmed Type Empagliflozin [Jardiance] 25 mg PO DAILY 02/17/20 04/27/23 History FLUoxetine HCL [PROzac] 20 mg PO DAILY 02/17/20 04/27/23 History Meloxicam 7.5 mg PO DAILY 02/17/20 04/27/23 History Metoprolol Succinate (ER) [Toprol 200 mg PO DAILY 02/17/20 04/27/23 History Xl] Omeprazole 20 mg PO DAILY 02/17/20 04/27/23 History hydroCHLOROthiazide [Hydrodiuril] 50 mg PO DAILY 02/17/20 04/27/23 History Aspirin 81 mg PO DAILY 03/24/23 04/27/23 History Baclofen [Lioresal] 10 mg PO TID 03/24/23 04/27/23 History Boswellia 1 tab PO DAILY 03/24/23 04/27/23 History Cholecalciferol [Vitamin D3 (25 25 mcg PO DAILY 03/24/23 04/27/23 History Mcg = 1000 Iu)] Diclofenac Sodium Gel [Voltaren 1% 2 gm TOPICAL QID 03/24/23 04/27/23 History Gel] Glucosa Reddy 2Kcl/Chondroitin Reddy 1 each PO DAILY 03/24/23 04/27/23 History [Glucosamine-Chondroitin Cap] HYDROcodone/APAP 10-325MG [[place] 1 tab PO TID 03/24/23 04/27/23 History 10-325] INSULIN ASPART (NovoLOG) [NovoLOG 6 unit SQ AC-TID 03/24/23 04/27/23 History (formulary)] Insulin Glargine,Hum.rec.anlog 60 units SQ HS 03/24/23 04/27/23 History [Evie Jordan] Loratadine [Claritin] 10 mg PO DAILY 03/24/23 04/27/23 History Milk Thistle 150 mg PO DAILY 03/24/23 04/27/23 History Multivitamins, Thera [Multivitamin 1 tab PO DAILY 03/24/23 04/27/23 History (formulary)] Simvastatin [Zocor] 40 mg PO HS 03/24/23 04/27/23 History Tamsulosin HCl [Flomax] 0.4 mg PO HS 03/24/23 04/27/23 History Tirzepatide [Mounjaro] 5 mg SQ SA 03/24/23 04/27/23 History Ubidecarenone [Co Q-10] 100 mg PO DAILY 03/24/23 04/27/23 History Vitamin E (Dl,Tocopheryl Acet) 400 unit PO DAILY 03/24/23 04/27/23 History [Vitamin E (400 Iu = 180 mg)]
== END ==
LOC: 3 N SLEEP 14:00
PROVIDERS: ATTEND Internal Medicine
DX: G47.33 Obstructive sleep apnea (adult) (pediatric) (principal); I10 Essential (primary) hypertension; E11.9 Type 2 diabetes mellitus without complications; N40.0 Benign prostatic hyperplasia without lower urinary tract symptoms; E78.5 Hyperlipidemia, unspecified; K21.9 Gastro-esophageal reflux disease without esophagitis; E66.01 Morbid (severe) obesity due to excess calories; M19.90 Unspecified osteoarthritis, unspecified site; Z98.52 Vasectomy status; Z96.662 Presence of left artificial ankle joint; Z68.30 Body mass index [BMI] 30.0-30.9, adult; Z88.6 Allergy status to analgesic agent
CPT/HCPCS: 99212

== ENCOUNTER → 2024-08-09 | Outpatient (CLI) | payer MEDICARE, OTHER ==
--- NOTE | 2024-08-09 13:33 | XR ---
EXAMINATION TYPE: XR chest 2V DATE OF EXAM: 08/09/2024 1:29 PM COMPARISON: 07/18/2022 CLINICAL INDICATION: Male, 73 years old with history of R059 COUGH: Shortness of breath TECHNIQUE: XR chest 2V views of the chest are obtained. FINDINGS: Scattered senescent parenchymal changes noted. Hyperinflation compatible with COPD. No evidence for infiltrate. No evidence for atelectasis. Heart size is stable. Mediastinal structures are stable and grossly unremarkable. No evidence for hilar prominence. Degenerative changes dorsal spine. IMPRESSION: 1. No evidence for acute pulmonary disease. [facility], , 08/09/2024 1:30 PM
== END | disposition home or self-care (01) ==
LOC: RADXRYALE 13:14
PROVIDERS: ATTEND Physician Assistant
DX: R05.9 Cough, unspecified (principal); R06.02 Shortness of breath
CPT/HCPCS: 71046

== ENCOUNTER → 2024-10-16 | Outpatient (CLI) | payer MEDICARE, OTHER ==
--- NOTE | 2024-10-16 09:40 | XR ---
EXAMINATION TYPE: XR chest 2V DATE OF EXAM: 10/16/2024 9:31 AM COMPARISON: Chest radiographs from 09-01 TECHNIQUE: XR chest 2V Frontal and lateral views of the chest. CLINICAL INDICATION:Male, 73 years old with history of R0602 SOB; FINDINGS: Lungs/Pleura: There is no evidence of pleural effusion, focal consolidation, or pneumothorax. Pulmonary vascularity: Unremarkable. Heart/mediastinum: Cardiomediastinal silhouette is prominent in size. Musculoskeletal: Multiple level degenerative disc disease changes seen throughout the spine. IMPRESSION: No acute cardiopulmonary disease/process. [facility], , 10/16/2024 9:38 AM
== END | disposition home or self-care (01) ==
LOC: RADXRYALE 09:02
DX: R06.02 Shortness of breath (principal)
CPT/HCPCS: 71046